=== PATIENT | male | born 1970 ===

== ENCOUNTER 2023-04-05 17:14 | Emergency (ER) | payer BC | END 2023-04-05 18:56 | disposition left against medical advice (07) | LOC: MW.ED 17:14 | DX: Z48.01 Encounter for change or removal of surgical wound dressing (principal) | CPT/HCPCS: 99281 ==

== ENCOUNTER 2023-04-27 09:33 | Emergency (ER) | payer BC ==
[2023-04-27 10:01] LABS: BASOPHILS ABSOLUTE AUTO 0.06 K/uL (0.00-0.20); BASOPHILS PERCENT AUTO 0.8 % (0.0-1.0); EOSINOPHILS ABSOLUTE AUTO 0.44 K/uL (0.00-0.45); HEMATOCRIT 28.1 % (42.0-52.0); HEMOGLOBIN 10.5 g/dL (14.0-18.0); IMMATURE GRAN ABSOLUTE AUTO 0.04 K/uL (0.00-0.05); IMMATURE GRAN PERCENT AUTO 0.5 % (0.0-0.4); LYMPHOCYTES PERCENT AUTO 16.3 % (24.0-44.0); MEAN CORPUSCULAR HEMOGLOBIN 35.5 pg (28.0-32.0); MEAN CORPUSCULAR HGB CONC 37.4 g/dL (32.0-36.0); MEAN CORPUSCULAR VOLUME 94.9 fL (83.0-99.0); MEAN PLATELET VOLUME 9.5 fL (9.4-12.4); MONOCYTES ABSOLUTE AUTO 0.79 K/uL (0.00-0.80); MONOCYTES PERCENT AUTO 10.7 % (0.0-8.0); NEUTROPHILS ABSOLUTE AUTO 4.84 K/uL (1.80-7.70); NEUTROPHILS PERCENT AUTO 65.7 % (41.0-71.0); PLATELET COUNT,PLT 157 K/uL (150-400); RED BLOOD CELL COUNT 2.96 M/uL (4.52-5.90); WHITE BLOOD CELL COUNT,WBC 7.37 K/uL (3.9-11.3)
[2023-04-27 10:31] LABS: A/G RATIO 0.6 (0.9-1.6); ALBUMIN 2.7 g/dL (3.4-5.0); BILIRUBIN TOTAL 1.7 mg/dL (0.2-1.0); CALCIUM 9.6 mg/dL (8.5-10.1); CARBON DIOXIDE,CO2 23.8 mmol/L (21.0-32.0); CREATININE 1.6 mg/dL (0.8-1.3); EST CRCL DRUG DOSING (CG) 55.56 mL/min; MAGNESIUM 1.8 mg/dL (1.8-2.4); POTASSIUM,K 5.6 mmol/L (3.5-5.1); PROTEIN TOTAL,TP 7.4 g/dL (6.4-8.2)
[2023-04-27] MEDS: Lactated Ringers 500 ML IV STA (11:04)
[2023-04-27] MEDS: Sodium Polystyrene Sulfonate 15 GM/60 ML Susp 60 ML Bot PO ONE (11:05)
== END 2023-04-27 11:42 | disposition home or self-care (01) ==
LOC: MW.ED 09:33
DX: E87.5 Hyperkalemia (principal); E11.9 Type 2 diabetes mellitus without complications; Z88.8 Allergy status to other drugs, medicaments and biological substances; Z79.899 Other long term (current) drug therapy
CPT/HCPCS: 36415; 80053; 82140; 83690; 83735; 85025; 93005; 96360; 99285; A9270; J7120; 93010; 99283

== ENCOUNTER 2023-05-22 05:20 | Emergency (ER) | payer BC ==
[2023-05-22 05:36] LABS: HEMATOCRIT 32.4 % (42.0-52.0); HEMOGLOBIN 11.9 g/dL (14.0-18.0); MEAN CORPUSCULAR HEMOGLOBIN 35.5 pg (28.0-32.0); MEAN CORPUSCULAR HGB CONC 36.7 g/dL (32.0-36.0); MEAN CORPUSCULAR VOLUME 96.7 fL (83.0-99.0); MEAN PLATELET VOLUME 9.2 fL (9.4-12.4); PLATELET COUNT,PLT 182 K/uL (150-400); RED BLOOD CELL COUNT 3.35 M/uL (4.52-5.90); WHITE BLOOD CELL COUNT,WBC 19.67 K/uL (3.9-11.3)
[2023-05-22 05:51] LABS: INR 1.36 (0.86-1.11); PTT,PARTIAL THROMBOPLSTIN TIME 32.9 SEC (23.9-30.7)
[2023-05-22] MEDS: Sodium Chloride 0.9% 2.5 ML Syringe FLUSH PRN (05:51)
[2023-05-22] MEDS: Sodium Chloride 0.9% 10 ML Syringe FLUSH PRN (05:51)
[2023-05-22] MEDS: Lidocaine 1% with EPINEPHrine 1:200,000 30 ML SDV INFILT STA (05:51)
[2023-05-22] MEDS: cefTRIAXone 2 GM in Sodium Chloride 0.9% 50 ML IV ONE (06:02)
[2023-05-22] MEDS: Sodium Chloride 0.9% 500 ML IV SCH (06:02)
[2023-05-22 06:05] LABS: A/G RATIO 0.5 (0.9-1.6); BILIRUBIN DIRECT 1.7 mg/dL (0.0-0.5); BILIRUBIN INDIRECT 1.5; BILIRUBIN TOTAL 3.2 mg/dL (0.2-1.0); CALCIUM 8.1 mg/dL (8.5-10.1); CARBON DIOXIDE,CO2 22.3 mmol/L (21.0-32.0); CREATININE 4.3 mg/dL (0.8-1.3); EST CRCL DRUG DOSING (CG) 18.15 mL/min; MAGNESIUM 2.5 mg/dL (1.8-2.4); POTASSIUM,K 5.2 mmol/L (3.5-5.1); PROTEIN TOTAL,TP 5.7 g/dL (6.4-8.2)
[2023-05-22 06:08] LABS: EOSINOPHILS ABSOLUTE MAN 1.38 K/uL (0.00-0.45); EOSINOPHILS PERCENT MAN 7 % (0-6); LYMPHOCYTES ABSOLUTE MAN 1.18 K/uL (1.00-4.80); LYMPHOCYTES PERCENT MAN 6 % (24-44); MONOCYTES ABSOLUTE MAN 2.36 K/uL (0.00-0.80); MONOCYTES PERCENT MAN 12 % (0-8); SEG NEUTROPHILS ABSOLUTE MAN 14.75 K/uL (1.80-7.70); SEG NEUTROPHILS PERCENT MAN 75 % (41-71)
[2023-05-22 06:25] LABS: BODY FLUID TYPE PER
[2023-05-22] MEDS: Ondansetron 4 MG/2 ML SDV ONE (06:27)
[2023-05-22] MEDS: Ondansetron 4 MG/2 ML SDV IVPUSH STA (06:28)
[2023-05-22 06:49] LABS: GLUCOSE,BODY FLUID 421 mg/dL; PROTEIN,BODY FLUID 2.8 g/dL
[2023-05-22 07:06] LABS: APPEARANCE,BODY FLUID CLEAR; COLOR,BODY FLUID YELLOW; RBC,BODY FLUID < 3000 /uL; WBC BODY FLUID 490 /uL
[2023-05-22 07:07] LABS: MONONUCLEAR, BODY FLUID 73.7 %; POLYMORPHONUCLEAR, BODY FLUID 26.3 %
[2023-05-22 07:41] LABS: BASE EXCESS VENOUS -8.4 (-2.0-3.0); PH,VENOUS 7.3 (7.31-7.41)
[2023-05-22] MEDS: Insulin Regular, Human 100 Units/ML 10 ML Vial IVPUSH ONE (08:08)
[2023-05-22 08:19] LABS: LACTIC ACID 2.2 mmol/L (0.4-2.0)
[2023-05-22] MEDS: Sodium Polystyrene Sulfonate 15 GM/60 ML Susp 60 ML Bot PO ONE (08:19)
== END 2023-05-22 08:54 ==
LOC: MW.ED 05:20
DX: K76.7 Hepatorenal syndrome (principal); D21.4 Benign neoplasm of connective and other soft tissue of abdomen; E11.9 Type 2 diabetes mellitus without complications; Z79.899 Other long term (current) drug therapy; Z88.8 Allergy status to other drugs, medicaments and biological substances; Z79.84 Long term (current) use of oral hypoglycemic drugs; Z79.4 Long term (current) use of insulin
CPT/HCPCS: 36415; 49083; 71045; 74176; 80048; 80076; 82140; 82803; 82945; 82947; 83605; 83690; 83735; 84157; 84484; 85025; 85610; 85730; 87040; 87070; 87075; 87205; 89050; 93005; 96365; 96375; 99285; J0696; J2405; J3490; J7040; 93010; 99291; J1815-GY